=== PATIENT | female | born 1995 | race Caucasian/White ===

== ENCOUNTER 2017-09-29 23:34 | Emergency (ER) | payer OTHER, BC ==
[~2017-09-29] VITALS: Ht 170.2 cm; Wt 68.2 kg
[2017-09-29 23:44] VITALS: TEMP 98.2
[2017-09-29] MEDS ORDERED: CRYSELLE 30 MCG1 TAB PO (23:47)
[2017-09-29] MEDS ORDERED: GLUCOPHAGE500 MG/TAB PO (23:48)
[2017-09-30 01:01] VITALS: BP 122/96; PULSE 86
== END 2017-09-30 01:02 | disposition home or self-care (01) ==
LOC: COL.ER 23:34 → EDBD 23:52 → COL.ER 23:52
DX: M79.89 Other specified soft tissue disorders (principal); Z79.84 Long term (current) use of oral hypoglycemic drugs; V49.40XA Driver injured in collision with unspecified motor vehicles in traffic accident, initial encounter